=== PATIENT | female | born 1975 | race Two or more races ===

== ENCOUNTER 2018-12-09 13:00 | Emergency (ER) | payer OTHER ==
--- NOTE | 2018-12-09 13:53 | ED Physician Chart ---
ED Chief Complaint/HPI - Patient Information Date Seen:: 12/09/18 Time Seen:: 13:17 Chief Complaint:: right hand injury History of Present Illness:: this is a 43 yo female who is concerned about her right hand injury sustained from a fall this afternoon. she denies all other injuries and health problems. Allergies:: Allergies Allergy/AdvReac Type Severity Reaction Status Date / Time No Known Allergies Allergy Verified 12/09/18 13:24 Vitals:: Vital Signs - 8 hr 12/09/18 13:11 Temp 98.4 F HR 70 RR 18 BP 94/42 O2 Sat % 100 Historian:: Patient Review:: Nurse's Note Reviewed ED Review of Systems - Review of Systems General/Constitutional: No fever, No chills, No weight loss, No weakness, No diaphoresis, No edema, No loss of appetite Skin: No skin lesions, No rash, No bruising Head: No headache, No light-headedness Eyes: No loss of vision, No pain, No diplopia ENT: No earache, No nasal drainage, No sore throat, No tinnitus Neck: No neck pain, No swelling, No thyromegaly, No stiffness, No mass noted Cardio Vascular: No chest pain, No palpitations, No PND, No orthopnea, No edema Pulmonary: No SOB, No cough, No sputum, No wheezing GI: No nausea, No vomiting, No diarrhea, No pain, No melena, No hematochezia, No constipation, No hematemesis G/U: No dysuria, No frequency, No hematuria Musculoskeletal: No bone or joint pain, No back pain, No muscle pain, Other ( right hand is painful and swollen.) Endocrine: No polyuria, No polydipsia Psychiatric: No prior psych history, No depression, No anxiety, No suicidal ideation Hematopoietic: No bruising, No lymphadenopathy Allergic/Immuno: No urticaria, No angioedema Neurological: No syncope, No focal symptoms, No weakness, No paresthesia, No headache, No seizure, No dizziness, No confusion, No vertigo ED Past Medical History - Past Medical History Obtainable: No Family History: None Social History: Non Smoker, No Alcohol, No Drug Use Surgical History: , other (thyroid surgery) Family Medical History - Family Member Mother History Unknown: Yes ED Physical Exam - Physical Examination General/Constitutional: Awake, Well-developed, well-nourished, Alert, No distress, GCS 15, Non-toxic appearing, Ambulatory Head: Atraumatic Eyes: Lids, conjuctiva normal, PERRL, EOMI Skin: Nl inspection, No rash, No skin lesions, No ecchymosis, Well hydrated, No lymphadenopathy ENMT: External ears, nose nl, Nasal exam nl, Lips, teeth, gums nl Neck: Nontender, Full ROM w/o pain, No JVD, No nuchal rigidity, No bruit, No mass, No stridor Respiratory: Nl effort/Exclusion, Clear to Auscultation, No Wheeze/Rhonchi/Rales Cardio Vascular: RRR, No murmur, gallop, rubs, NL S1 S2 GI: No tenderness/rebounding/guarding, No organomegaly, No hernia, Normal BS's, Nondistended, No mass/bruits, No McBurney tenderness : No CVA tenderness Extremities: No tenderness or effusion (there is tenderness and swelling over the dorsal distal 3rd metacarpal bone of the right hand.), Full ROM, normal strength in all extremities, No edema, Normal digits & nails Neuro/Psych: Alert/oriented, DTR's symmetric, Normal sensory exam, Normal motor strength, Judgement/insight normal, Mood normal, Normal gait, No focal deficits Misc: Normal back, No paraspinal tenderness ED Labs/Radiology/EKG Results - Lab Results Results: Laboratory Tests 12/09/18 13:31 POC Ur Test Negative - Radiology Results Results: right hand x-ray = neg for fracture. ED Assessment - Assessment General Assessment: contusion of the right hand ED Septic Shock - . Is Septic Shock (SBP<90, OR Lactate>4 mmol\L) present?: No - <6hrs of presentation: Vital Signs: Vital Signs - 8 hr 12/09/18 13:11 Temp 98.4 F HR 70 RR 18 BP 94/42 O2 Sat % 100 ED Reassessment (Disposition) - Reassessment Reassessment Condition:: Improved - Diagnosis Diagnosis:: contusion and abrasion of the right hand. - Aftercare/Follow up Instructions Aftercare/Follow-Up Instructions:: Counseled pt regarding lab results/diagnosis & need follow up, Refer to Discharge Instructions, Counseled pt & family regarding lab results/diagnosis & need follow up - Patient Disposition Discharge/Transfer:: Home Condition at Disposition:: Improved
--- NOTE | 2018-12-10 10:00 | Diagnostic Imaging Report ---
Right hand 3 views Indication: pain Comparison: none Findings: There is irregularity distal radius probably developmental. Otherwise no evidence of an acute fracture. A sclerotic density possibly bone island versus melorheostosis of the first distal phalanx is noted. No focal soft tissue swelling. Impression: Slight irregularity distal radius probably developmental. Otherwise no evidence of an acute fracture. Please correlate clinically. Sclerosis of the distal first distal phalanx which may be due to a bone island or melorheostosis. In the setting of trauma, if clinical symptoms persist and there is continued concern for an occult fracture, follow up exams in 5-7 days is suggested.
== END 2018-12-09 14:28 | disposition home or self-care (01) ==
LOC: ER 13:00
DX: S60.221A Contusion of right hand, initial encounter (principal); Z98.890 Other specified postprocedural states; W18.39XA Other fall on same level, initial encounter; Y93.89 Activity, other specified; Y92.89 Other specified places as the place of occurrence of the external cause; Y99.8 Other external cause status
CPT/HCPCS: 73120-TC-RT; 81025-TC; Z7502